=== PATIENT | female | born 1940 | race Caucasian/White ===

== ENCOUNTER 2020-12-30 10:33 | Inpatient (IN) | payer OTHER ==
[~2020-12-30] VITALS: Ht 167.6 cm; Wt 59.1 kg
[2020-12-30 11:18] LABS: Basophils # (auto) 0.1 10 ^3/uL (0-0.2); Basophils % (auto) 1.1 % (0.0-2.0); Eosinophils # (auto) 0.1 10 ^3/uL (0-0.8); Eosinophils % (auto) 1.3 % (0.0-7.0); Hemoglobin 13.6 g/dL (12.2-16.2); Lymphocytes # (auto) 0.6 10 ^3/uL (0.4-5.4); Lymphocytes % (auto) 13.1 % (10.0-50.0); Mean Corpuscular Hemoglobin 31.1 pg (28.0-32.0); Mean Corpuscular Hgb Conc. 34.9 g/dL (32.0-36.0); Mean Corpuscular Volume 89.2 fL (80.0-100.0); Monocytes # (auto) 0.5 10 ^3/uL (0-1.3); Monocytes % (auto) 9.5 % (0.0-12.0); Neutrophils # (auto) 3.7 10 ^3/uL (1.6-8.6); Nucleated Red Blood Cells % 0.1 %; Platelet Count (auto) 220 10^3/uL (140-450); Red Blood Cells 4.37 10^6/uL (4.0-5.20); Red Cell Distribution Width 13.3 % (11.8-14.3); White Blood Cell 4.9 10^3/uL (4.4-10.8)
[2020-12-30 11:34] LABS: Albumin 3.7 g/dL (3.4-5.0); Anion Gap 4 (5-15); Blood Urea Nitrogen 17 mg/dL (7-18); Calcium 12.1 mg/dL (8.5-10.1); Carbon Dioxide 29 mmol/L (21-32); Chloride 107 mmol/L (98-107); Glucose 120 mg/dL (74-106); Potassium 3.3 mmol/L (3.5-5.1); Sodium 140 mmol/L (136-145)
[2020-12-30 11:39] LABS: Alanine Aminotransferase 20 U/L (13-56); Alkaline Phosphatase 76 U/L (45-117); Aspartate Aminotransferase 15 U/L (15-37); BUN/Creatinine Ratio 15.7; Bilirubin, Total 0.6 mg/dL (0.2-1.0); GFR African American 63 mL/min; GFR Non-African American 52 mL/min; Total Protein 7.5 g/dL (6.4-8.2)
[2020-12-30] MEDS ORDERED: POTASSIUM EFFERVESENT TAB 25 MEQ PO ONE (12:00)
[2020-12-30] MEDS ORDERED: SODIUM CHLORIDE 0.9% 1,000 ML IV ONE ×2 (14:15)
[2020-12-30] MEDS ORDERED: IOHEXOL 300 MG/ML 100ML BOTTLE IJ ONE (14:35)
[2020-12-30 15:43] LABS: Urine Bacteria NONE SEEN /hpf (None Seen); Urine Blood Negative /uL (Negative); Urine Specific Gravity 1.006 (1.001-1.035); Urine WBC 1 /hpf (0 - 5)
[2020-12-30] MEDS ORDERED: ALBUTEROL SULF 2.5 MG/0.5ML(0.5%) NEB SOLN NEB PRN (18:00)
[2020-12-30] MEDS ORDERED: MORPHINE SULF INJ 2 MG/ML SYRINGE 1ML IV PRN (18:00)
[2020-12-30] MEDS ORDERED: NITROGLYCERIN 0.4 MG SL TAB SL PRN (18:00)
[2020-12-30] MEDS ORDERED: ZOLEDRONIC ACID 4 MG in SODIUM CHL 0.9% 100 ML IV ONE (18:15)
[2020-12-30 20:24] VITALS: BP 151/87
[2020-12-30] MEDS: SODIUM CHLORIDE 0.9% 1,000 ML IV SCH (20:59)
[2020-12-30 22:00] VITALS: BP 151/87
[2020-12-30 23:33] LABS: BUN/Creatinine Ratio 17.1; Calcium 11.3 mg/dL (8.5-10.1); Potassium 3.6 mmol/L (3.5-5.1)
[2020-12-31 04:30] VITALS: BP 148/84
[2020-12-31] MEDS: SODIUM CHLORIDE 0.9% 1,000 ML IV SCH ×3 (05:19→21:52)
[2020-12-31 07:14] LABS: Basophils # (auto) 0.1 10 ^3/uL (0-0.2); Basophils % (auto) 1.8 % (0.0-2.0); Eosinophils # (auto) 0.2 10 ^3/uL (0-0.8); Eosinophils % (auto) 3.3 % (0.0-7.0); Hematocrit 34.7 % (36.0-46.0); Hemoglobin 12.5 g/dL (12.2-16.2); Lymphocytes % (auto) 19.1 % (10.0-50.0); Mean Corpuscular Hgb Conc. 36.1 g/dL (32.0-36.0); Mean Corpuscular Volume 88.5 fL (80.0-100.0); Monocytes # (auto) 0.6 10 ^3/uL (0-1.3); Neutrophils # (auto) 3.3 10 ^3/uL (1.6-8.6); Neutrophils % (auto) 64.8 % (37.0-80.0); Nucleated Red Blood Cells % 0.2 %; Platelet Count (auto) 194 10^3/uL (140-450); Red Blood Cells 3.92 10^6/uL (4.0-5.20); Red Cell Distribution Width 13.1 % (11.8-14.3)
[2020-12-31 07:47] LABS: Calcium 11.1 mg/dL (8.5-10.1); Potassium 3.6 mmol/L (3.5-5.1)
[2020-12-31 07:50] LABS: BUN/Creatinine Ratio 15.8
[2020-12-31 09:00] VITALS: BP 151/88
[2020-12-31] MEDS: POTASSIUM CHL 10 Meq TABLET PO SCH (09:32)
[2020-12-31] MEDS: POLYETHYLENE GLYCOL 17 GM PWDR PO SCH ×2 (09:33→09:50)
[2020-12-31] MEDS: ENOXAPARIN SOD 40 MG/0.4 ML SYRINGE SC SCH (09:35)
[2020-12-31] MEDS: OMEPRAZOLE 20MG/10ML ORAL SUSP PO SCH (09:50)
[2020-12-31] MEDS ORDERED: FUROSEMIDE 20 MG TAB PO SCH (10:00)
[2020-12-31 13:00] VITALS: BP 156/85
[2020-12-31 17:00] VITALS: BP 154/99
[2020-12-31 17:56] LABS: Protein, Urine < 5.0 mg/dL (0.0-11.9)
[2020-12-31 17:58] LABS: Creatinine, Urine 12.4 mg/dL (30.0-125.0)
[2020-12-31] MEDS: FUROSEMIDE 40 MG/4 ML VIAL IV SCH (21:51)
[2020-12-31] MEDS: POTASSIUM CHL 20 Meq TABLET PO SCH (21:52)
[2020-12-31 22:00] VITALS: BP 157/58
[2020-12-31] MEDS ORDERED: SENNA 8.6 MG TAB PO SCH (22:00)
[2021-01-01 05:00] VITALS: BP 157/90
[2021-01-01 07:54] LABS: Basophils # (auto) 0.1 10 ^3/uL (0-0.2); Basophils % (auto) 0.9 % (0.0-2.0); Eosinophils # (auto) 0.1 10 ^3/uL (0-0.8); Eosinophils % (auto) 2.2 % (0.0-7.0); Hematocrit 35.6 % (36.0-46.0); Hemoglobin 12.3 g/dL (12.2-16.2); Mean Corpuscular Hgb Conc. 34.7 g/dL (32.0-36.0); Mean Corpuscular Volume 89.3 fL (80.0-100.0); Monocytes # (auto) 0.7 10 ^3/uL (0-1.3); Monocytes % (auto) 10.4 % (0.0-12.0); Neutrophils # (auto) 4.5 10 ^3/uL (1.6-8.6); Neutrophils % (auto) 70.5 % (37.0-80.0); Platelet Count (auto) 200 10^3/uL (140-450); Red Blood Cells 3.99 10^6/uL (4.0-5.20); Red Cell Distribution Width 13.1 % (11.8-14.3); White Blood Cell 6.4 10^3/uL (4.4-10.8)
[2021-01-01 08:00] VITALS: BP 156/98
[2021-01-01 08:18] LABS: Potassium 3.8 mmol/L (3.5-5.1)
[2021-01-01 08:26] LABS: BUN/Creatinine Ratio 20.5
[2021-01-01] MEDS: POTASSIUM CHL 20 Meq TABLET PO SCH (09:53)
[2021-01-01] MEDS: POLYETHYLENE GLYCOL 17 GM PWDR PO SCH (09:54)
[2021-01-01] MEDS: OMEPRAZOLE 20MG/10ML ORAL SUSP PO SCH (09:54)
[2021-01-01] MEDS: FUROSEMIDE 40 MG/4 ML VIAL IV SCH (09:54)
[2021-01-01] MEDS: POTASSIUM CHL 10 Meq TABLET PO SCH (09:54)
[2021-01-01] MEDS: ENOXAPARIN SOD 40 MG/0.4 ML SYRINGE SC SCH (10:00)
[2021-01-01 12:43] VITALS: BP 156/90
[2021-01-01] MEDS ORDERED: FURO1TAB31 PO (12:44)
[2021-01-01] MEDS ORDERED: POTA-167 PO (12:44)
[2021-01-01] MEDS ORDERED: IOHEXOL 300 MG/ML 100ML BOTTLE IJ ONE (14:44)
[2021-01-01 16:55] VITALS: BP 156/90
[2021-01-01 17:00] VITALS: BP 148/82
== END 2021-01-01 19:36 | disposition home health service (06) | DRG 644 ==
LOC: ER 10:33 → TELE 10:34 → TELE-CENTR 20:35
PROVIDERS: ADMIT Internal Medicine; ATTEND Internal Medicine
DX: E21.0 Primary hyperparathyroidism (principal); N17.9 Acute kidney failure, unspecified; E87.6 Hypokalemia; I10 Essential (primary) hypertension; E86.9 Volume depletion, unspecified; M81.0 Age-related osteoporosis without current pathological fracture; Z83.2 Family history of diseases of the blood and blood-forming organs and certain disorders involving the immune mechanism; Z83.3 Family history of diabetes mellitus; Z20.822 Contact with and (suspected) exposure to COVID-19
CPT/HCPCS: 36415; 71045; 71260; 74177; 80048; 80053; 81001; 82306; 82570; 83883; 83970; 84155; 84156; 84165; 84484; 85025; 87426; 93005; 96360; G0378; J3489